=== PATIENT | male | born 1955 | race Caucasian/White ===

== ENCOUNTER 2023-12-26 15:21 | Emergency (ER) | payer MEDICARE ==
[2023-12-26] MEDS: Diphtheria,Pertussis(Acell),Tetanus Vaccine 0.5 ML Syringe IM ONE (16:00)
[2023-12-26] MEDS: Lidocaine 1% 10 ML MDV INJECT ONE (16:03)
== END 2023-12-26 16:07 | disposition home or self-care (01) ==
LOC: VM.ED 15:21
DX: S60.455A Superficial foreign body of left ring finger, initial encounter (principal); I25.10 Atherosclerotic heart disease of native coronary artery without angina pectoris; Z95.5 Presence of coronary angioplasty implant and graft; Z79.02 Long term (current) use of antithrombotics/antiplatelets; Z87.891 Personal history of nicotine dependence; Z23 Encounter for immunization; W45.8XXA Other foreign body or object entering through skin, initial encounter
CPT/HCPCS: 10120; 90471; 90715; 99283-25; J3490